=== PATIENT | male | born 1950 | race Asian ===

== ENCOUNTER 2023-10-25 06:16 | Day surgery (SDC) | payer MEDICARE, OTHER ==
[2023-10-25] MEDS: LACTATED RINGERS 1,000 ML IV ONE ×2 (06:21→08:06)
[2023-10-25] MEDS: KETOROLAC TROMETHAMINE 0.5% OPHTH DROPS 5 ML ONE (06:30)
[2023-10-25] MEDS: PROPARACAINE 0.5% OPHTH DROPS 15 ML ONE (06:30)
[2023-10-25] MEDS: CYCLOPENTOLATE 1% OPHTH DROPS 2 ML ONE (06:35)
[2023-10-25] MEDS: PHENYLEPHRINE 2.5% OPHTH 2 ML DROPS ONE (06:35)
[2023-10-25] MEDS ORDERED: fentaNYL 100 MCG/2 ML VIAL ONE (06:45)
[2023-10-25] MEDS ORDERED: MIDAZOLAM 2 MG/2 ML VIAL ONE (06:45)
[2023-10-25] MEDS ORDERED: EPINEPHrine 1 MG/ML AMP ONE (07:05)
[2023-10-25] MEDS ORDERED: TRIAMCIN/MOXIFLOX OPHTHALMIC 0.6 ML VIAL IO ONE (07:06)
[2023-10-25] MEDS ORDERED: TIMOLOL 0.5% OPHTH DROPS ONE (07:06)
[2023-10-25] MEDS ORDERED: BRIMONIDINE 0.2% OPHTH DROPS 5 ML ONE (07:06)
[2023-10-25] MEDS ORDERED: BSS/LIDOCAINE/EPINEPHRINE 1 ML VIAL ONE (07:06)
--- NOTE | 2023-10-25 07:06 | ANESTHESIA ---
Pre-Anesthesia VS, & Labs - Diagnosis SENILE COMBINED CATARACT LEFT - Procedure EXTRACTION CATARACT WITH LENS IMPLANT Vital Signs: Temp Pulse Resp BP Pulse Ox O2 Flow Rate 36.2 C L 62 17 145/64 H 99 10/25/23 06:31 10/25/23 06:31 10/25/23 06:31 10/25/23 06:31 10/25/23 06:31 Height: 5 ft 10 in Weight (kg): 85.3 kg Body Mass Index: 26.9 BMI Classification: Overweight - NPO >8 hours - Lab Results Current Lab Results: Laboratory Tests 10/25/23 06:40: POC Whole Bld Glucose 175 H Home Medications and Allergies Home Medications: Ambulatory Orders Aspirin [Vazalore] 81 mg PO DAILY 10/24/23 Finasteride [Proscar] 1 tab PO DAILY 10/24/23 Naproxen Sodium [Aleve] 220 mg PO DAILY 10/24/23 Tamsulosin [Flomax] 1 tab PO DAILY 10/24/23 glipiZIDE [Glucotrol] 1 tab PO BID 10/24/23 metFORMIN [Glucophage] 1,000 mg PO BID 10/24/23 Aspirin [Vazalore] 81 mg PO DAILY 10/24/23 Finasteride [Proscar] 1 tab PO DAILY 10/24/23 Naproxen Sodium [Aleve] 220 mg PO DAILY 10/24/23 Tamsulosin [Flomax] 1 tab PO DAILY 10/24/23 glipiZIDE [Glucotrol] 1 tab PO BID 10/24/23 metFORMIN [Glucophage] 1,000 mg PO BID 10/24/23 Allergies/Adverse Reactions: Allergies Allergy/AdvReac Type Severity Reaction Status Date / Time No Known Drug Allergies Allergy Verified 10/25/23 06:51 Anes History & Medical History - Anesthetic History Anesthesia Complications: reports: No previous complications Family history of Anesthesia Complications: Denies Family history of Malignant Hyperthermia: Denies - Medical History Cardiovascular: reports: None Pulmonary: reports: None Gastrointestinal: reports: None Urinary: reports: None Neuro: reports: None Musculoskeletal: reports: Rheumatoid arthritis Endocrine/Autoimmune: reports: Type 2 diabetes Blood Disorders: reports: None Skin: reports: None Smoking Status: Never smoker Psychosocial: reports: No issues indicated History of Cancer?: No - Surgical History General: reports: Cholecystectomy, Colonoscopy Results - EKG Results EKG Comparison: Reviewed EKG, Normal EKG Exam General: Alert, Oriented x3, Cooperative, No acute distress Mouth Openin Fingerbreadth Neck Mobility: Normal Mallampati classification: IV Thyromental Distance: 4-6 cm Mental/Cognitive Status: Alert/Oriented X3, Normal for patient Cognitive Status: Within normal limits Plan Anesthesia Type: MAC Consent for Procedure(s) Verified and Reviewed: Yes Code Status: Attempt Resuscitation ASA classification: 2-Mild systemic disease Is this case an emergency?: No
[2023-10-25] MEDS: BRIMONIDINE 0.2% OPHTH DROPS 5 ML OPTH ONE (07:16)
[2023-10-25] MEDS: TIMOLOL 0.5% OPHTH DROPS OPTH ONE (07:17)
[2023-10-25] MEDS: EPINEPHrine 1 MG/ML AMP IR ONE (07:17)
[2023-10-25] MEDS: PROPARACAINE 0.5% OPHTH DROPS 15 ML EACHEYE ONE (07:18)
[2023-10-25] MEDS: VANCOMYCIN OPHTH (TOPICAL) 10 MG/ML SYRINGE TOP ONE (07:18)
[2023-10-25] MEDS: BSS/LIDOCAINE/EPINEPHRINE 1 ML SYRINGE IO ONE (07:18)
[2023-10-25] MEDS: TRIAMCIN/MOXIFLOX OPHTHALMIC 0.6 ML VIAL IO ONE (07:18)
--- NOTE | 2023-10-25 08:14 | OPERATIVE REPORT ---
Operative Report - Other Other Information/Narrative: Date of Surgery: Preop Dx: Complex, visually significant cataract left eye. Complex due to floppy iris requiring mechanical dilation using a Malyugin ring. This was the first cataract surgery. Postop Dx: Same Procedure: Phacoemulsification with posterior chamber intraocular lens implant left eye Surgeon: Dr. Corona Whittington Anesthesia: Monitored anesthesia care Complications: None Operative Indications: This is a 73-year-old M with progressive vision loss in the left eye due to 3+ nuclear sclerotic, 3+ posterior subcapsular, and vacuolar cataract. Best corrected visual acuity was 20/30 with glare to light perception vision in the left eye. Indications for surgery were: - Overall decrease in vision - Difficulty seeing words, closed captions, or game scores on TV - Difficulty tracking a golf ball The patient was consented at length concerning the risks and benefits of cataract surgery after which the patient expressed a desire to proceed with surgery. Operative Procedure: The patient was taken into OR#3 and placed under monitored anesthesia care. A surgical time-out was conducted confirming correct patient, correct procedure, and correct surgical site. The patient was given topical anesthesia and then prepped and draped in the usual sterile fashion. The eye was entered at the 6 and 3 oclock positions. Intracameral Shugarcaine was injected into the anterior chamber followed by a dispersive viscoelastic. A Malyugin ring was injected into the anterior chamber and engaged with the pupillary margin at four points to stabilize the pupil. A continuous-tear curv ilinear capsulorhexis was performed. The nucleus was hydrodissected and phacoemulsified. During phacoemulsification the Malyugin ring became entangled in the lens and had to be removed. The cortex was evacuated using automated infusion and aspiration. A cohesive viscoelastic was injected into the capsular bag and a 24.0 diopter intraocular lens was inserted into the bag. Infusion and aspiration were used to evacuate the viscoelastic materials from the eye. The wounds were hydrated and the eye inflated to physiologic pressure using balanced salt solution. Approximately 0.25ml of a mixture of triamcinolone and moxifloxacin was injected trans-sclerally into the vitreous in the inferotemporal quadrant using a 30 gauge cannula. An additional 0.25ml of a mixture of triamcinolone and moxifloxacin was injected subconjunctivally in the superior quadrant for infection and inflammation prophylaxis. Wound integrity was checked with Weck-Alissa sponges. The patient was taken from the operating r oom in good condition and given post-op instructions.
[2023-10-25 08:30] VITALS: BP 120/54; O2SAT 98
--- NOTE | 2023-10-25 11:40 | ANESTHESIA POST OP EVALUATION ---
Anesthesia Post Eval - Post Anesthesia Eval Vitals: Last Vital Signs Temp 36.2 C L 10/25/23 08:22 Pulse 57 L 10/25/23 08:22 Resp 16 10/25/23 08:22 BP 120/54 L 10/25/23 08:22 Pulse Ox 98 10/25/23 08:22 O2 Flow Rate CV Function Including HR & BP: Stable Pain Control: Satisfactory Nausea & Vomiting: Negative Mental Status: Baseline Respiratory Status: Airway Patent Hydration Status: Satisfactory Anesthesia Complications: None
== END 2023-10-25 06:17 | disposition home or self-care (01) ==
LOC: SDS 06:16
PROVIDERS: ATTEND Ophthalmology
DX: E11.36 Type 2 diabetes mellitus with diabetic cataract (principal); H25.812 Combined forms of age-related cataract, left eye; I10 Essential (primary) hypertension; Z79.84 Long term (current) use of oral hypoglycemic drugs
CPT/HCPCS: 66984; A9270; J3490; J7120

== ENCOUNTER 2023-11-29 06:15 | Day surgery (SDC) | payer MEDICARE, OTHER ==
[2023-11-29] MEDS: PROPARACAINE 0.5% OPHTH DROPS 15 ML ONE (06:28)
[2023-11-29] MEDS: KETOROLAC TROMETHAMINE 0.5% OPHTH DROPS 5 ML ONE (06:29)
[2023-11-29] MEDS: PHENYLEPHRINE 2.5% OPHTH 2 ML DROPS ONE (06:30)
[2023-11-29] MEDS: CYCLOPENTOLATE 1% OPHTH DROPS 2 ML ONE (06:30)
[2023-11-29] MEDS: LACTATED RINGERS 1,000 ML IV ONE ×2 (06:38→07:52)
--- NOTE | 2023-11-29 06:49 | ANESTHESIA ---
Pre-Anesthesia VS, & Labs - Diagnosis R senile combined cataract - Procedure extraction R cataract with IOL Vital Signs: Temp Pulse Resp BP Pulse Ox O2 Flow Rate 36 C L 62 16 142/67 H 100 11/29/23 06:25 11/29/23 06:25 11/29/23 06:25 11/29/23 06:25 11/29/23 06:25 Height: 5 ft 10 in Weight (kg): 84.5 kg Body Mass Index: 26.7 BMI Classification: Overweight - NPO >8 hours - Lab Results Current Lab Results: Laboratory Tests 11/29/23 06:37: POC Whole Bld Glucose 145 H Lab results reviewed: Yes Home Medications and Allergies Aspirin [Vazalore] 81 mg PO DAILY 10/24/23 Finasteride [Proscar] 1 tab PO DAILY 10/24/23 Naproxen Sodium [Aleve] 220 mg PO DAILY 10/24/23 Tamsulosin [Flomax] 1 tab PO DAILY 10/24/23 glipiZIDE [Glucotrol] 1 tab PO BID 10/24/23 metFORMIN [Glucophage] 1,000 mg PO BID 10/24/23 Allergies/Adverse Reactions: Allergies Allergy/AdvReac Type Severity Reaction Status Date / Time No Known Drug Allergies Allergy Verified 10/25/23 06:51 Anes History & Medical History - Anesthetic History Anesthesia Complications: reports: No previous complications Family history of Anesthesia Complications: Denies Family history of Malignant Hyperthermia: Denies - Medical History Cardiovascular: reports: None Pulmonary: reports: None Gastrointestinal: reports: None Urinary: reports: None Neuro: reports: None Musculoskeletal: reports: Rheumatoid arthritis Endocrine/Autoimmune: reports: Type 2 diabetes Blood Disorders: reports: None Skin: reports: None Smoking Status: Never smoker - Surgical History General: reports: Cholecystectomy, Colonoscopy Eyes Ears Nose Throat (EENT): reports: Cataracts Exam General: Alert, Oriented x3, Cooperative Dental: WNL Mouth Openin Fingerbreadth Neck Mobility: Normal Mallampati classification: II Thyromental Distance: 4-6 cm Respiratory: Lungs clear, Normal breath sounds, No respiratory distress Cardiovascular: Regular rate Neurological: Normal speech Mental/Cognitive Status: Alert/Oriented X3, Normal for patient Cognitive Status: Within normal limits Plan Anesthesia Type: MAC Consent for Procedure(s) Verified and Reviewed: Yes Code Status: Attempt Resuscitation ASA classification: 2-Mild systemic disease Is this case an emergency?: No
[2023-11-29] MEDS ORDERED: MIDAZOLAM 2 MG/2 ML VIAL ONE (07:03)
[2023-11-29] MEDS ORDERED: TRIAMCIN/MOXIFLOX OPHTHALMIC 0.6 ML VIAL IO ONE (07:04)
[2023-11-29] MEDS ORDERED: EPINEPHrine 1 MG/ML AMP ONE (07:04)
[2023-11-29] MEDS ORDERED: BRIMONIDINE 0.2% OPHTH DROPS 5 ML ONE (07:04)
[2023-11-29] MEDS ORDERED: BSS/LIDOCAINE/EPINEPHRINE 1 ML VIAL ONE (07:05)
[2023-11-29] MEDS ORDERED: TIMOLOL 0.5% OPHTH DROPS ONE (07:05)
[2023-11-29] MEDS: BSS/LIDOCAINE/EPINEPHRINE 1 ML SYRINGE IO ONE (07:41)
[2023-11-29] MEDS: BRIMONIDINE 0.2% OPHTH DROPS 5 ML OPTH ONE (07:41)
[2023-11-29] MEDS: PROPARACAINE 0.5% OPHTH DROPS 15 ML RIGHTEYE ONE (07:41)
[2023-11-29] MEDS: TRIAMCIN/MOXIFLOX OPHTHALMIC 0.6 ML VIAL IO ONE (07:41)
[2023-11-29] MEDS: TIMOLOL 0.5% OPHTH DROPS OPTH ONE (07:41)
[2023-11-29] MEDS: EPINEPHrine 1 MG/ML AMP IR ONE (07:41)
[2023-11-29] MEDS: VANCOMYCIN OPHTH (TOPICAL) 10 MG/ML SYRINGE TOP ONE (07:42)
--- NOTE | 2023-11-29 07:57 | OPERATIVE REPORT ---
Operative Report - Other Other Information/Narrative: Date of Surgery: 11/29/23 Preop Dx: Visually significant cataract right eye. Cataract surgery was performed in the left eye on . Postop Dx: Same Procedure: Phacoemulsification with posterior chamber intraocular lens implant right eye Surgeon: Dr. Corona Whittington Anesthesia: Monitored anesthesia care Complications: None Operative Indications: This is a 73-year-old M with progressive vision loss in the right eye due to 2+nuclear sclerotic, 2+ posterior subcapsular, and vacuolar cataract. Best corrected visual acuity was 20/30 with glare to light perception vision in the right eye. Indications for surgery were: - Overall decrease in vision - Difficulty seeing words on a computer screen - Difficulty reading - Difficulty seeing words, closed captions, or game scores on TV - Difficulty seeing street signs - Difficulty driving in low light or at night - Difficulty driving at night because of headlights from other vehicles - Difficulty with glare or bright lights in any situation - Difficulty tracking a golf ball The patient was consented at length concerning the risks and benefits of cataract surgery after which the patient expressed a desire to proceed with surgery. Operative Procedure: The patient was taken into OR#3 and placed under monitored anesthesia care. A surgical time-out was conducted confirming correct patient, correct procedure, and correct surgical site. The patient was given topical anesthesia and then prepped and draped in the usual sterile fashion. The eye was entered at the 6 and 3 oclock positions. Intracameral Shugarcaine was injected into the anterior chamber followed by a dispersive viscoelastic. A continuous-tear curvilinear capsulorhexis was performed. The nucleus was hydrodissected and phacoemulsified. The cortex was evacuated using automated infusion and aspiration. A cohesive viscoelastic was injected into the capsular bag and a 25.0 diopter intraocular lens was inserted into the bag. Infusion and aspiration were used to evacuate the viscoelastic materials from the eye. The wounds were hydrated and the eye inflated to physiologic pressure using balanced salt solution. Approximately 0.25ml of a mixture of triamcinolone and moxifloxacin was injected trans-sclerally into the vitreous in the inferotemporal quadrant using a 30 gauge cannula. An additional 0.25ml of a mixture of triamcinolone and moxifloxacin was injected subconjunctivally in the superior quadrant for infection and inflammation prophylaxis. Wound integrity was checked with Weck-Alissa sponges. The patient was taken from the operating room in good condition and given post-op instructions.
--- NOTE | 2023-11-29 08:01 | ANESTHESIA POST OP EVALUATION ---
Anesthesia Post Eval - Post Anesthesia Eval Vitals: Last Vital Signs Temp 36.0 C L 11/29/23 07:51 Pulse 62 11/29/23 08:00 Resp 16 11/29/23 08:00 BP 123/66 11/29/23 08:00 Pulse Ox 99 11/29/23 08:00 O2 Flow Rate CV Function Including HR & BP: Stable Pain Control: Satisfactory Nausea & Vomiting: Negative Mental Status: Baseline Respiratory Status: Airway Patent Hydration Status: Satisfactory Anesthesia Complications: None
[2023-11-29 08:26] VITALS: BP 121/60; O2SAT 98
== END 2023-11-29 06:16 | disposition home or self-care (01) ==
LOC: SDS 06:15
PROVIDERS: ATTEND Ophthalmology
DX: H25.811 Combined forms of age-related cataract, right eye (principal); E11.9 Type 2 diabetes mellitus without complications; Z79.84 Long term (current) use of oral hypoglycemic drugs; M06.9 Rheumatoid arthritis, unspecified
CPT/HCPCS: 66984; A9270; J3490; J7120